=== PATIENT | male | born 1955 | race Caucasian/White ===

== ENCOUNTER → 2019-07-28 | Outpatient (CLI) | payer OTHER ==
[2019-07-28 19:32] LABS: ALBUMIN 4.1 GM/DL (3.2-5.2); ALT/SGPT 37 U/L (12-78); BILIRUBIN,TOTAL 0.6 MG/DL (0.2-1.0); BLOOD UREA NITROGEN 15 MG/DL (7-18); CALCIUM LEVEL 9.7 MG/DL (8.8-10.2); CARBON DIOXIDE LEVEL 34 MEQ/L (21-32); CHLORIDE LEVEL 102 MEQ/L (98-107); CHOLESTEROL LEVEL 182 MG/DL (<200); CHOLESTEROL RISK RATIO 4.232 (<5); CREATININE FOR GFR 1.24 MG/DL (0.70-1.30); GLOMERULAR FILTRATION RATE > 60.0 (>49); GLUCOSE, FASTING 119 MG/DL (70-100); HDL CHOLESTEROL 43 MG/DL (>40); LDL CHOLESTEROL 92 MG/DL (<100); NON-HDL-C 139 MG/DL; POTASSIUM SERUM 4.2 MEQ/L (3.5-5.1); SODIUM LEVEL 140 MEQ/L (136-145); TOTAL PROTEIN 6.9 GM/DL (6.4-8.2); TRIGLYCERIDES LEVEL 234 MG/DL (<150)
== END ==
LOC: M WUC 08:19
PROVIDERS: ATTEND Physician Assistant
DX: E78.5 Hyperlipidemia, unspecified (principal); I10 Essential (primary) hypertension

== ENCOUNTER 2019-12-12 07:45 | Day surgery (SDC) | payer OTHER ==
[~2019-12-12] VITALS: Ht 175.3 cm; Wt 100.2 kg
[~2019-12-12 07:45] MED LIST: ALLO100T PO; AMLO5TAB6 PO; ATOR1TAB21 PO; BISO10TA4 PO; FENO145T7 PO; FLUTISP; LISI20TA20 PO; MELO15TA28 PO; NS 1,000 ML IV ONE
[2019-12-12] MEDS ORDERED: propofoL 500 MG/50 ML VIAL As Ordered ONE (09:56)
[2019-12-12] MEDS ORDERED: LIDOCAINE 2% INJ 100 MG/5 ML SDV (FOR ANES.) As Ordered ONE (09:56)
--- NOTE | 2019-12-12 10:01 | ROOR ---
Patient Name: Crispin Roberson Procedure Date: 12/12/2019 9:18 AM Date of : 1955 Age: 64 Room: [facility] Gender: Male Note Status: Finalized Procedure: Colonoscopy Indications: Screening for colorectal malignant neoplasm Providers: Nishant Ramsey MD Referring MD: TEO DELEON Requesting Provider: Medicines: Monitored Anesthesia Care Complications: No immediate complications. Procedure: Pre-Anesthesia Assessment: - Prior to the procedure, a History and Physical was performed, and patient medications and allergies were reviewed. The patient is competent. The risks and benefits of the procedure and the sedation options and risks were discussed with the patient. All questions were answered and informed consent was obtained. Patient identification and proposed procedure were verified by the physician, the nurse and the anesthesiologist in the endoscopy suite. Mental Status Examination: alert and oriented. Airway Examination: normal oropharyngeal airway and neck mobility. Respiratory Examination: clear to auscultation. CV Examination: normal. Prophylactic Antibiotics: The patient does not require prophylactic antibiotics. Prior Anticoagulants: The patient has taken no previous anticoagulant or antiplatelet agents. ASA Grade Assessment: III - A patient with severe systemic disease. After reviewing the risks and benefits, the patient was deemed in satisfactory condition to undergo the procedure. The anesthesia plan was to use monitored anesthesia care (MAC). Immediately prior to administration of medications, the patient was re-assessed for adequacy to receive sedatives. The heart rate, respiratory rate, oxygen saturations, blood pressure, adequacy of pulmonary ventilation, and response to care were monitored throughout the procedure. The physical status of the patient was re-assessed after the procedure. The Colonoscope was introduced through the anus and advanced to the cecum, identified by appendiceal orifice and ileocecal valve. The colonoscopy was performed without difficulty. The patient tolerated the procedure well. The quality of the bowel preparation was good. Findings: Hemorrhoids were found on perianal exam. Skin tags were found on perianal exam. Two sessile polyps were found in the sigmoid colon and transverse colon. The polyps were 4 to 7 mm in size. These polyps were removed with a hot snare. Resection and retrieval were complete. Estimated blood loss was minimal. A 7 mm polyp was found in the anus. The polyp was semi-pedunculated. The polyp was removed with a hot snare. Resection and retrieval were complete. Estimated blood loss: none. Impression: - Hemorrhoids found on perianal exam. - Perianal skin tags found on perianal exam. - Two 4 to 7 mm polyps in the sigmoid colon and in the transverse colon, removed with a hot snare. Resected and retrieved. - One 7 mm polyp at the anus, removed with a hot snare. Resected and retrieved. Recommendation: - Repeat colonoscopy in 5 years for surveillance of multiple polyps. - Await pathology results. Nishant Ramsey MD Nishant Ramsey MD 12/12/2019 10:00:59 AM Electronically signed by Nishant Ramsey MD Number of Addenda: 0 Note Initiated On: 12/12/2019 9:18 AM Estimated Blood Loss: Estimated blood loss was minimal.
[2019-12-12] MEDS ORDERED: hydrALAZINE INJ 20 MG/ML VIAL IV PRN (10:45)
[2019-12-12 11:05] VITALS: BP 163/78
== END 2019-12-12 11:15 | disposition home or self-care (01) ==
LOC: M OPP 07:45
PROVIDERS: ATTEND Surgery
DX: Z12.11 Encounter for screening for malignant neoplasm of colon (principal); D12.5 Benign neoplasm of sigmoid colon; D12.3 Benign neoplasm of transverse colon; K62.0 Anal polyp; K64.4 Residual hemorrhoidal skin tags; Z79.899 Other long term (current) drug therapy